=== PATIENT | male | born 1965 | race Caucasian/White ===

== ENCOUNTER 2016-10-28 12:48 | Day surgery (SDC) | payer OTHER ==
[~2016-10-28] VITALS: Ht 175.3 cm; Wt 75.0 kg
[2016-10-28 15:02] VITALS: Ht 175.3 cm; Wt 75.0 kg
[2016-10-28] MEDS ORDERED: ALLOPURINOL (15:08)
[2016-10-28] MEDS ORDERED: VENTOLIN (15:08)
[2016-10-28] MEDS ORDERED: HYDROXYZINE (15:08)
[2016-10-28] MEDS ORDERED: MIDAZOLAM 1 MG/ML 2 ML INJ ONE (16:10)
[2016-10-28] MEDS ORDERED: LIDOCAINE 2% (SDV) 5 ML INJ ONE (16:10)
[2016-10-28] MEDS ORDERED: PROPOFOL 20 ML ONE (16:10)
[2016-10-28 16:20] VITALS: BP 151/84; PULSE 55; RESP 20
[2016-10-28 17:25] VITALS: BP 126/84; PULSE 54; RESP 15
--- NOTE | 2016-10-29 05:37 | GILP ---
DATE OF PROCEDURE: 10/28/2016 PROCEDURE: Colonoscopy with polyp ablation. BRIEF HISTORY AND INDICATIONS: The patient is being evaluated for colorectal cancer screening. PREMEDICATION: Monitored anesthesia care by anesthesiologist. SURGEON: Eva Torres MD INSTRUMENT USED: Olympus colonoscope. PREPARATION: Adequate. TECHNIQUE: After informed consent, with the patient/relatives understanding the procedure, its indic ations potential risks and complications, including but not limited to: allergic reaction, bleeding, perforation, infection, missed lesions and after all pertinent questions were answered to the patie nt's satisfaction, the patient/relatives signed the witnessed informed consent. Following this, premedication was administered slowly IV push by under careful cardiovascular and re spiratory monitoring with pulse oximetry, automatic blood pressure and equipment monitor phototypesetting. Once the sedativ e effect was achieved, the patient was placed in the left lateral decubitus position, digital rectal examination was performed. The colonoscope was then introduced and advanced under visual control th roughout all segments of the colon including: the rectum, sigmoid, descending colon, splenic flexure , transverse colon, hepatic flexure, ascending colon and finally reaching the cecum which was clearl y identified by transillumination, finger indentation and the ileocecal valve. Careful examination o f the mucosa of the lower gastrointestinal tract both on insertion as well as withdrawal of the inst rument disclosed the following findings: Rectal Examination: No evidence of perirectal disease, no masses. Colonic Mucosa: There is a 4 mm polyp in the rectum which was completely ablated with biopsy forcep s. The remainder of the colonic mucosa is entirely unremarkable. The ileocecal valve was clearly i dentified and appears unremarkable. The instrument was then withdrawn, and with withdrawal of the instrument, no additional abnormalitie s were noted with the exception of moderate size internal hemorrhoids. The patient tolerated the procedure well and was transferred out of the [facility] awake and in good condition to continue recovery under observation. IMPRESSION: 1. A 4 mm polyp in the rectum, ablated. 2. Otherwise, normal colonic mucosa to cecum. 3. Moderate size internal hemorrhoids. PLAN: Pathology will be reviewed as soon as available. Surveillance colonoscopy in 5 years is ben mmended. Dictated By: EVA TORRES MS/GERHARD Conf#: [id number] DID#: [id number]
== END 2016-10-28 17:20 | disposition home or self-care (01) ==
LOC: GIL 12:48
PROVIDERS: ATTEND Internal Medicine Gastroenterology
DX: Z12.11 Encounter for screening for malignant neoplasm of colon (principal); K62.1 Rectal polyp; K64.8 Other hemorrhoids; J45.909 Unspecified asthma, uncomplicated
CPT/HCPCS: 45380; 88305; J2250; Z7610